=== PATIENT | female | born 1955 | race Caucasian/White ===

== ENCOUNTER 2019-04-10 19:08 | Inpatient (IN) ==
[2019-04-10] MEDS ORDERED: IOPAMIDOL 100 ML BOTTLE IV ONE (19:09)
[2019-04-10] MEDS ORDERED: ONDANSETRON 4 MG/2 ML VIAL IV ONE (19:49)
[2019-04-10] MEDS ORDERED: HYDROmorphone 2 MG/ML VIAL IV PRN (19:49)
[2019-04-10] MEDS ORDERED: 0.9 % SODIUM CHLORIDE 2,000 ML IV ONE (19:49)
--- NOTE | 2019-04-10 19:53 | Emergency Department Note ---
Abdominal Pain HPI - General Chief Complaint: Abdominal Pain Stated Complaint: abd pain Time Seen by Provider: 04/10/19 19:38 Source: patient Mode of arrival: ambulatory Limitations: no limitations - History of Present Illness HPI Narrative: 64-year-old female with a 4-day history of nausea vomiting and diarrhea. She does have a history of umbilical hernia that occasionally flares up causes pain in this kind of picture but it does not usually last 4 days. She is having some cramping belly pain and this has subsided somewhat but still remains. Unknown fever. No dyspnea - Related Data Previous Rx's Medication Instructions Recorded blood sugar diagnostic strips See Dose Instructions .ROUTE 02/06/15 .MEDSUPPLY #100 each Chair lift #1 each 09/10/16 CPAP auto titration W supplys #1 each 09/20/16 Disabled parking pass #1 ea 06/13/17 atorvastatin 40 mg tablet 40 mg PO QDAY #30 tab 02/08/18 metformin 850 mg tablet 850 mg PO BID #60 tab 03/07/18 pioglitazone 45 mg tablet 45 mg PO .COMPLEX #30 tab 03/07/18 [employer] for CPAP device #1 ea 03/29/18 losartan 100 mg tablet 100 mg PO QDAY #30 tab 06/08/18 Allergies Allergy/AdvReac Type Severity Reaction Status Date / Time No Known Drug Allergies Allergy Verified 06/28/18 10:07 Review of Systems All systems ED: reviewed and negative except as stated. Abdominal Pain PMH - Past Medical History Attestation: Yes: The following information was validated with the patient. [facility] Narrative: Family History (Last Reviewed 04/10/19 @ 18:51 by Sejal Hargrove PA-C) Father Coronary artery disease, Onset Age: 75 Mother Diabetes mellitus Malignant neoplasm of lung, Onset Age: 81 Unknown History of carcinoma in situ of skin Medical History (Last Reviewed 04/10/19 @ 18:51 by Sejal Hargrove PA-C) Diabetes mellitus (Chronic) Hx of fracture of foot (Chronic) Retinal edema (Chronic) Nuclear sclerosis (Chronic) Benign essential HTN (Chronic 08/04/12) Diabetes mellitus with ophthalmic manifestation (Chronic) DDD (degenerative disc disease), lumbosacral (Chronic) Abdominal pain (Resolved) 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 Normocephalic atraumatic. Conjunctive are clear sclerae white anicteric. No nasal discharge or congestion. Oropharynx pink with dry buccal mucosa. Neck is supple without lymphadenopathy thyromegaly. Heart is regular rate and rhythm. Early systolic murmur 2 out of 6. Lungs are clear to auscultation bilaterally without wheezes rales rhonchi or respiratory distress. Abdomen is soft nontender nondistended except for an umbilical hernia and scar area which is very mildly tender and just mildly erythematous as well. I do not see any other abnormality. No pedal edema. +2 radial pulse. Alert oriented Limitations: no limitations Course Vital Signs Temperature 97.9 F 04/10/19 19:09 Pulse Rate 106 H 04/10/19 19:09 Respiratory Rate 20 04/10/19 19:09 Blood Pressure 130/63 04/10/19 19:09 Pulse Oximetry (%) 99 04/10/19 19:09 Temperature 97.9 F 04/10/19 19:09 Pulse Rate 87 04/10/19 21:16 Respiratory Rate 20 04/10/19 21:40 Blood Pressure 164/77 04/10/19 21:31 Pulse Oximetry (%) 100 04/10/19 21:16 Abdominal Pain - Lab Data Lab results reviewed: Yes I reviewed the patient's lab results. Result diagrams: 04/10/19 19:57 04/10/19 19:56 Lab Results 04/10/19 04/10/19 04/10/19 Range/Units 19:56 19:57 21:20 WBC 11.7 H (4.5-11.0) K/mcL RBC 4.51 (4.00-5.20) M/mcL Hgb 13.8 (12.0-15.0) g/dL Hct 41.6 (36.0-48.0) % POC Hct 43.0 (36.0-48.0) % MCV 92.2 (80.0-100.0) fL MCH 30.6 (26.0-34.0) pg MCHC 33.2 (31.0-36.0) g/dL RDW 14.9 H (11.5-14.5) % Plt Count 362 (140-440) K/mcL MPV 7.5 (7.4-10.4) fL Gran % 82.9 H (38.0-78.0) % Lymph % (Auto) 7.9 L (15.5-49.0) % [place] % (Auto) 8.9 (1.0-12.0) % Eos % (Auto) 0.2 (0.0-7.0) % Baso % (Auto) 0.1 (0.0-2.0) % Gran # 9.7 H (1.8-8.0) K/mcL Lymph # (Auto) 0.9 L (1.5-4.8) K/mcL [place] # (Auto) 1.0 H (0.1-0.9) K/mcL Eos # (Auto) 0 (0.0-0.7) K/mcL Baso # (Auto) 0 (0.0-0.3) K/mcL POC Sodium 139 (133-145) mmol/L Sodium 139 (133-145) mmol/L POC Potassium 3.8 (3.3-5.1) mmol/L Potassium 3.9 (3.3-5.1) mmol/L POC Chloride 102 (96-108) mmol/L Chloride 100 (96-108) mmol/L Carbon Dioxide 25 (22-30) mmol/L POC Total CO2 27 (22-30) mmol/L Anion Gap 14.0 (8-16) POC BUN 28 H (8-23) mg/dl BUN 26 H (8-23) mg/dl Creatinine 0.9 (0.6-1.1) mg/dl POC Creatinine 0.9 (0.6-1.1) mg/dl GFR Calculation 67 Glucose 164 H (70-105) mg/dL POC Glucose 169 H (70-105) mg/dL Calcium 9.9 (8.6-10.4) mg/dl POC WB Ioniz Calcium 1.19 (1.16-1.32) mmol/L Total Bilirubin 0.7 (0.0-1.0) mg/dL AST 14 (0-37) U/l ALT 13 (0-40) U/l Alkaline Phosphatase 71 (39-117) U/L Total Protein 7.8 (5.9-8.4) gm/dL Albumin 4.4 (3.2-5.2) gm/dL Globulin 3.4 (2.2-3.7) gm/dL Albumin/Globulin Ratio 1.3 (1.0-2.3) Lipase 36 (7-60) U/L Urine Color Sejal Urine Appearance Turbid Urine pH 5.0 (5.0-9.0) Ur Specific [place] 1.026 (1.000-1.035) Urine Protein 30 A (NEG) mg/dL Urine Glucose (UA) Negative (NEG) mg/dL Urine Ketones 5/tr A (NEG) mg/dL Urine Occult Blood 0.03 A (<0.03) mg/dL Urine Nitrate Pos A (NEG) Urine Bilirubin Neg (NEG) mg/dL Urine Urobilinogen Neg (NEG) mg/dL Ur Leukocyte Esterase 75 A (NEG) /uL Urine RBC 0 (0-1) /hpf Urine WBC 9 H (0-4) /hpf Ur Squamous Epith Cells 18 H (0-4) /hpf Ur Transition Epith Cell 3 H (0-2) /hpf Urine Bacteria Many A (0) /hpf Urine Mucus Mod (0) /hpf Ur Culture Indicated? No - Radiology Data Radiology results reviewed: Yes I reviewed the patient's radiology results. 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 Ordered pain medicine nausea medicine and IV fluids. CT scan and laboratory work-up pending Urine dip shows trace leukocytes and blood along with positive nitrites and specific gravity 1.025 consistent with a UTI and dehydration. Suspect complicated UTI or even pyelonephritis start Rocephin Urinalysis microscopic however shows lots of squamous cells so this is likely contaminated specimen. CT scan showed mechanical small bowel obstruction from incarcerated hernia. Discussed with Dr. Juan Gould. He advised me to go ahead and do an NG tube treat pain and nausea start IV fluids. Keep n.p.o. He will plan on doing surgery tomorrow morning. Per his request I wrote transition orders Disposition: Xfer As Inpt ([facility]) Condition: Fair Referrals: Murali Cloud MD [Primary Care Provider] -
[2019-04-10] MEDS ORDERED: cefTRIAXone 1 GM VIAL IV ONE (19:55)
[2019-04-10 20:01] LABS: POC Blood Urea Nitrogen 28 mg/dl (8-23); POC CO2 27 mmol/L (22-30); POC Calcium, Ionized 1.19 mmol/L (1.16-1.32); POC Chloride 102 mmol/L (96-108); POC Creatinine 0.9 mg/dl (0.6-1.1); POC Glucose, Random 169 mg/dL (70-105); POC Potassium 3.8 mmol/L (3.3-5.1); POC Sodium 139 mmol/L (133-145)
[2019-04-10 20:55] LABS: Basophils # (Auto) 0 K/mcL (0.0-0.3); Basophils % (Auto) 0.1 % (0.0-2.0); Eosinophils # (Auto) 0 K/mcL (0.0-0.7); Eosinophils % (Auto) 0.2 % (0.0-7.0); Granulocytes % (Auto) 82.9 % (38.0-78.0); Hematocrit 41.6 % (36.0-48.0); Hemoglobin 13.8 g/dL (12.0-15.0); Lymphocytes # (Auto) 0.9 K/mcL (1.5-4.8); Lymphocytes % (Auto) 7.9 % (15.5-49.0); Mean Cell Volume 92.2 fL (80.0-100.0); Mean Corpuscular HGB Conc 33.2 g/dL (31.0-36.0); Mean Platelet Volume 7.5 fL (7.4-10.4); Monocytes % (Auto) 8.9 % (1.0-12.0); Platelet Count 362 K/mcL (140-440); RBC 4.51 M/mcL (4.00-5.20); Red Cell Distribution Width 14.9 % (11.5-14.5); WBC 11.7 K/mcL (4.5-11.0)
[2019-04-10 21:09] LABS: ALT/SGPT 13 U/l (0-40); AST/SGOT 14 U/l (0-37); Albumin 4.4 gm/dL (3.2-5.2); Albumin/Globulin Ratio 1.3 (1.0-2.3); Alkaline Phosphatase 71 U/L (39-117); Bilirubin,Total 0.7 mg/dL (0.0-1.0); Blood Urea Nitrogen 26 mg/dl (8-23); Calcium 9.9 mg/dl (8.6-10.4); Carbon Dioxide 25 mmol/L (22-30); Chloride 100 mmol/L (96-108); Globulin 3.4 gm/dL (2.2-3.7); Glomerular Filtration Rate 67; Glucose 164 mg/dL (70-105)
[2019-04-10] MEDS ORDERED: NALOXONE HCL 0.4 MG/ML VIAL IV PRN (21:42)
[2019-04-10] MEDS ORDERED: ONDANSETRON 4 MG/2 ML VIAL IV PRN (21:42)
[2019-04-10 21:44] LABS: Appearance,Urine TURBID; Bacteria,Urine MANY /hpf (0); Bilirubin,Urine NEG (NEG); Color,Urine AMBER; Culture Indicated,Urine NO; Glucose,Urine (UA) NEGATIVE (NEG); Ketones,Urine 5/TR mg/dL (NEG); Leukocyte Esterase,Urine 75 /uL (NEG); Mucus,Urine MOD /hpf (0); Nitrate,Urine POS (NEG); Protein,Urine 30 mg/dL (NEG); Specific Gravity,Urine 1.026 (1.000-1.035); Urine Blood 0.03 mg/dL (<0.03); Urine RBC 0 /hpf (0-1); Urine Squamous Epithelial Cell 18 /hpf (0-4); Urine Transitional Epi Cells 3 /hpf (0-2); Urine WBC 9 /hpf (0-4); Urobilinogen,Urine NEG (NEG)
[2019-04-10] MEDS: 0.9 % SODIUM CHLORIDE 1,000 ML IV SCH (23:59)
--- NOTE | 2019-04-11 05:56 | Cat Scan Report ---
CLINICAL INFORMATION: Nausea, vomiting and diarrhea COMPARISON: None. TECHNIQUE: Following enteric contrast, 80 cc of Isovue-370 were injected intravenously, and 60 seconds later, 0.625 mm helical slices were obtained from the mid heart through the subtrochanteric regions. Following reconstruction, 2.5 mm sagittal, coronal and axial reformatted images were processed and reviewed at bone, lung and soft tissue windows. Five minutes later, 0.625 mm helical slices were obtained from the mid heart through the kidneys and viewed at soft tissue windows.The exam was performed using radiation dose optimization techniques including, but not limited to, automated exposure control, adjustment of the mA and/or kV according to patient size and use of iterative reconstruction technique. FINDINGS: Lung bases show moderate reticulonodular infiltrate in the medial segment of the right middle lobe. Minor scarring seen in the lingula. No effusion. The visualized heart is mildly enlarged. Abdominal images show an 8 mm cyst in the lateral segment left hepatic lobe, but no significant hepatic abnormality. There appear to be vague small cholesterol stones layering dependently within the gallbladder. The intrahepatic and extrahepatic ducts are normal diameter - CBD 5 mm. A 7 mm simple cyst is seen in posterior cortex mid left kidney - no other renal abnormality. Both adrenal glands, spleen, pancreas and aorta, including aortic branches, are normal in size, configuration and attenuation without focal lesion. Pelvic images with hysterectomy /oophorectomy. The urinary bladder is unremarkable. There is a 6 cm hernia in the left infraumbilical region of the anterior abdominal wall containing a short (4 cm) segment of ileum with resultant high-grade small bowel obstruction. Ileal wall continues to enhance, thus no evidence of strangulation. The stomach and proximal small bowel are moderately dilated with marked decompression of the small bowel and colon distal to the hernia sac. Moderate fluid in the hernia sac suggests associated third spacing. A second 5 cm hernia in the right infraumbilical region of the anterior abdominal wall contains only fluid. There is also a 8 cm multilobulated periumbilical hernia more superiorly containing mesenteric fat with moderate edema. There is no free air The bone windows show no osseous abnormality. IMPRESSION: 1. 6 cm hernia in the left infraumbilical region which contains a segment of distal ileum. Although incarceration is suspected, the ileal wall enhances and, thus, there is no evidence of strangulation. Moderate fluid within the hernia sac is compatible third spacing. The hernia has resulted in high-grade ileal obstruction with moderate dilatation of the stomach and proximal small bowel and decompression of the distal small bowel and colon. No free air. 2. Second 6 cm hernia in the right infraumbilical region contains only mesenteric fluid. 3. Third 8.5 cm multilobulated hernia, more superiorly in the periumbilical region, contains only edematous mesenteric fat. 4. Small reticuloodular infiltrate in the right middle lobe 5. Possible vague cholesterol stones layering dependently in the gallbladder. Suggest limited gallbladder ultrasound Interpreted and Authenticated by: Scott Macias 04/11/19
--- NOTE | 2019-04-11 10:19 | General Surg History&Physical ---
History of Present Illness Patient information: Note initiated : 04/11/19 at 10:17 am Service Date, if different from initiated Date: [] Patient: Charmaine Servin a 64 y/o F admitted on 04/10/19 for abd pain. Chief Complaint: [] HPI: Ms. Servin is a 64 year old F admitted with small bowel obstruction. The patient has a long history of incisional hernia with recurrent subacute small bowel obstruction. On Tuesday she developed mid line abdominal pain followed by nausea and vomiting. This persisted throughout the weekend. She had worsening emesis on yesterday and the pain became more severe and across her upper abdominal area. She was seen in the emergency room or a CT shows 3 major fascial defects with bowel and each hernia sac with one infraumbilical defect with a loop of small bowel that is tightly incarcerated in the hernia sac. There is also fluid in the hernia sac. Patient is less symptomatic at this time but she still has a tender abdomen. She is counseled for exploratory laparotomy with incisional hernia repair and possible small bowel resection. Review of Systems - Constitutional weight gain - EENT Nose, mouth and throat: no dizziness, no hoarseness, no vertigo - Cardiovascular dyspnea on exertion, no irregular heart rhythm, no palpatations, no pedal edema - Respiratory no cough, no dyspnea on exertion, no wheezing, no chest congestion - Gastrointestinal abdominal pain, change in bowel habits, diarrhea, heartburn, nausea, vomiting - Genitourinary Genitourinary: no urinary hesitancy, no urinary incontinence - Musculoskeletal back pain, numbness, stiffness, tingling - Integumentary no non-healing lesions, no pruritus, no rash - Neurological abnormal gait, no confusion, no convulsions, no dizziness, no headache(s), no tremor(s), no vertigo - Psychiatric no anxiety, no depression - Endocrine no cold intolerance, no fatigue - Hematologic/Lymphatic no easy bleeding, no easy bruising, no lymphadenopathy - Allergic/Immunologic no tongue swelling, no throat swelling, no uticaria, no wheezing, no lip swelling Past History Past medical history: Diabetes mellitus with neuropathy, nephropathy and ocular deficiencies Hypertension Degenerative disc disease Past surgical history: Abdominal hysterectomy Left foot surgery for [id number] Past family history: Father due to coronary artery disease He also had diabetes mellitus Mother due to lung cancer Past social history: Never smoker Occasional alcohol use Denies drug use Medications and Allergies Home Medications Medication Instructions Recorded Confirmed Type blood sugar diagnostic strips See Dose Instructions .ROUTE 02/06/15 06/28/18 Rx .MEDSUPPLY #100 each Chair lift #1 each 09/10/16 06/28/18 Rx CPAP auto titration W supplys #1 each 09/20/16 06/28/18 Rx Disabled parking pass #1 ea 06/13/17 06/28/18 Rx atorvastatin 40 mg tablet 40 mg PO QDAY #30 tab 02/08/18 04/10/19 Rx metformin 850 mg tablet 850 mg PO BID #60 tab 03/07/18 04/10/19 Rx pioglitazone 45 mg tablet 45 mg PO .COMPLEX #30 tab 03/07/18 04/10/19 Rx [employer] for CPAP device #1 ea 03/29/18 06/28/18 Rx losartan 100 mg tablet 100 mg PO QDAY #30 tab 06/08/18 04/10/19 Rx Allergies Allergy/AdvReac Type Severity Reaction Status Date / Time No Known Drug Allergies Allergy Verified 06/28/18 10:07 Exam Temp Pulse Resp BP Pulse Ox 99.2 F H 106 H 18 110/51 96 04/11/19 08:00 04/11/19 08:00 04/11/19 08:00 04/11/19 08:00 04/11/19 08:00 - General physical appearance well developed, well nourished, no distress, no pain, obese (morbidly obese) - Eyes PERRL, normal ocular movement - ENT normal pinna, normal nares, normal mucosa, no hearing loss, no congestion - Head Head exam IM: Present: atraumatic, normal inspection, normocephalic - Neck no masses, no bruits, trachea midline, no lymphadenopathy, no venous distension - Cardiovascular Cardiovascular exam IM: Present: normal rate and rhythm, RRR, +S1, +S2. Absent: bradycardia, JVD, tachycardia Type of murmur IM: Present: systolic Intensity IM: 2/6 - Respiratory normal expansion, normal respiratory effort, clear to auscultation - Abdomen Abdomen: Present: soft, tender ( mild tenderness mid abdomen), bowel sounds ( hyperactive bowel sounds with borborygmi), surgical scars Hernia: Present: none - Genitourinary Present: normal external genitalia - Integumentary Present: no rash, no growths, no abnormal pigmentation - Neurologic Present: normal coordination, normal sensation - Musculoskeletal Present: normal gait, normal posture, other ( deformities of both feet) - Psychiatric Present: oriented to time, oriented to person, oriented to place, speech is normal, memory intact Assessment and Plan (1) Incisional hernia of anterior abdominal wall with obstruction Patient is counseled for exploratory laparotomy with incisional hernia repair She will probably need to have mesh graft for fixation of the hernia There is a possibility that she will need to have a small bowel resection Status: Acute (2) Dehydration Partially corrected with IV saline. Continued hydration will be carried out Status: Acute (3) Benign essential HTN Status: Chronic (4) Diabetes mellitus with ophthalmic manifestation will cover with every 6 hours Accu-Cheks and sliding scale insulin Status: Chronic
[2019-04-11] MEDS: 0.9 % SODIUM CHLORIDE 1,000 ML IV SCH ×4 (10:29→23:28)
[2019-04-11] MEDS ORDERED: IPRATROPIUM/ALBUTEROL 3 ML AMPUL.NEB NEB PRN ×2 (10:36→14:37)
[2019-04-11] MEDS ORDERED: SCOPOLAMINE 1 PATCH PATCH TOPICAL PRN (10:36)
--- NOTE | 2019-04-11 12:37 | XRay Report ---
CLINICAL INFORMATION: Preop COMPARISON: None. TECHNIQUE: PA and Lateral views FINDINGS: The heart size, mediastinum and pulmonary vessels are unremarkable. Small infiltrate in the right middle lobe appreciated. There are no effusions. The bones and soft tissues are within normal limits. IMPRESSION: Small right middle lobe infiltrate. Interpreted and Authenticated by: Scott Macias 04/11/19
[2019-04-11] MEDS ORDERED: MIDAZOLAM 2 MG/2 ML VIAL IV ONE (12:45)
[2019-04-11] MEDS ORDERED: SUGAMMADEX SODIUM 200 MG/2 ML VIAL IV ONE (12:45)
[2019-04-11] MEDS ORDERED: LIDOCAINE HCL/PF 100 MG/5 ML SYRINGE IV ONE (12:45)
[2019-04-11] MEDS ORDERED: GLYCOPYRROLATE 0.2 MG/ML VIAL IV ONE (12:45)
[2019-04-11] MEDS ORDERED: ROPIVACAINE HCL/PF 30 ML VIAL IJ ONE (12:45)
[2019-04-11] MEDS ORDERED: ONDANSETRON 4 MG/2 ML VIAL IV ONE (12:45)
[2019-04-11] MEDS ORDERED: PROPOFOL 200 MG/20 ML VIAL IV ONE (12:45)
[2019-04-11] MEDS ORDERED: KETAMINE 100 MG/ML ML IV ONE (12:45)
[2019-04-11] MEDS ORDERED: ROCURONIUM 10 MG/ML ML IV ONE (12:45)
[2019-04-11] MEDS ORDERED: BACITRACIN 50,000 UNIT VIAL IR ONE (14:20)
[2019-04-11] MEDS ORDERED: KETOROLAC 15 MG/ML VIAL IV PRN (14:37)
[2019-04-11] MEDS ORDERED: METHOCARBAMOL 1,000 MG/10 ML VIAL IV PRN (14:37)
[2019-04-11] MEDS ORDERED: MEPERIDINE 25 MG/ML SYRINGE IV PRN (14:37)
[2019-04-11] MEDS ORDERED: ACETAMINOPHEN 1,000 MG/100 ML BOTTLE IV ONE (14:37)
[2019-04-11] MEDS ORDERED: ONDANSETRON 4 MG/2 ML VIAL IV PRN ×2 (14:37→16:10)
[2019-04-11] MEDS ORDERED: HYDROmorphone 2 MG/ML VIAL IV PRN (14:37)
[2019-04-11] MEDS ORDERED: LACTATED RINGERS 1,000 ML IV SCH (14:45)
--- NOTE | 2019-04-11 15:01 | Brief Operative Note ---
Date of procedure: 04/11/19 Pre-op diagnosis: incisional hernia with small bowel obstruction Post-op diagnosis: other (multiple incisional hernias with small bowel obstruction) Procedure: exploratory laparotomy with adhesiolysis incisional hernia repair with mesh graft Grafts/Implants: Yes ([id number] -skirted) Anesthesia: GETA Findings: three major fascial defects with incarcerated small bowel with obstruction extensive adhesions with partial small bowel obstruction Complications: none Surgeon: Gudelia Gould Estimated blood loss (cc): 100 Specimens Removed/Pathology: none sent Condition: stable Disposition: PACU
[2019-04-11] MEDS: fentaNYL 100 MCG/2 ML VIAL IV PRN ×2 (15:36→15:42)
[2019-04-11] MEDS ORDERED: ACETAMINOPHEN 1,000 MG in PREMIX 1 BAG IV SCH (16:10)
[2019-04-11] MEDS ORDERED: 0.9 % SODIUM CHLORIDE 1,000 ML IV SCH (16:10)
[2019-04-11] MEDS ORDERED: ACETAMINOPHEN 1,000 MG/100 ML BOTTLE IV PRN (16:23)
[2019-04-11] MEDS ORDERED: ACETAMINOPHEN 1,000 MG/100 ML BOTTLE IV SCH (16:30)
[2019-04-11] MEDS: HYDROmorphone 2 MG/ML VIAL IV PRN (16:34)
[2019-04-11] MEDS: CEFEPIME 2 GM VIAL IV SCH (16:35)
[2019-04-11] MEDS: INSULIN LISPRO 1 UNIT/0.01 ML UNIT SQ SCH (16:40)
[2019-04-11] MEDS: metroNIDAZOLE 500 MG/100 ML BAG IV SCH ×2 (17:15→23:27)
[2019-04-11] MEDS: METOCLOPRAMIDE 10 MG/2 ML VIAL IV SCH ×2 (18:14→23:27)
[2019-04-11] MEDS: ACETAMINOPHEN 1,000 MG/100 ML BOTTLE IV SCH (21:14)
[2019-04-12] MEDS: INSULIN LISPRO 1 UNIT/0.01 ML UNIT SQ SCH ×5 (00:02→23:55)
[2019-04-12] MEDS: ACETAMINOPHEN 1,000 MG/100 ML BOTTLE IV SCH ×2 (03:37→09:29)
[2019-04-12] MEDS: 0.9 % SODIUM CHLORIDE 1,000 ML IV SCH ×3 (03:38→18:07)
[2019-04-12] MEDS: metroNIDAZOLE 500 MG/100 ML BAG IV SCH ×2 (05:04→12:10)
[2019-04-12] MEDS: METOCLOPRAMIDE 10 MG/2 ML VIAL IV SCH ×4 (05:04→23:56)
[2019-04-12 07:15] LABS: Basophils # (Auto) 0 K/mcL (0.0-0.3); Basophils % (Auto) 0 % (0.0-2.0); Eosinophils # (Auto) 0.1 K/mcL (0.0-0.7); Eosinophils % (Auto) 0.6 % (0.0-7.0); Granulocytes % (Auto) 74.9 % (38.0-78.0); Hematocrit 36.7 % (36.0-48.0); Lymphocytes # (Auto) 1.4 K/mcL (1.5-4.8); Lymphocytes % (Auto) 11.5 % (15.5-49.0); Mean Cell Volume 93.8 fL (80.0-100.0); Mean Corpuscular HGB Conc 32.8 g/dL (31.0-36.0); Monocytes # (Auto) 1.6 K/mcL (0.1-0.9); Platelet Count 293 K/mcL (140-440); RBC 3.92 M/mcL (4.00-5.20); Red Cell Distribution Width 14.7 % (11.5-14.5); WBC 12.6 K/mcL (4.5-11.0)
[2019-04-12 07:37] LABS: ALT/SGPT 10 U/l (0-40); AST/SGOT 15 U/l (0-37); Alkaline Phosphatase 71 U/L (39-117); Bilirubin,Direct < 0.2 mg/dL (0.0-0.3); Bilirubin,Total 0.5 mg/dL (0.0-1.0); Blood Urea Nitrogen 15 mg/dl (8-23); Calcium 8.3 mg/dl (8.6-10.4); Carbon Dioxide 19 mmol/L (22-30); Chloride 106 mmol/L (96-108); Glomerular Filtration Rate 77; Glucose 93 mg/dL (70-105); Lactate Dehydrogenase 264 U/L (94-250); Phosphorous 3.6 mg/dL (2.7-4.5); Triglycerides 90 mg/dl (<150); Uric Acid 4.7 mg/dL (2.5-8.0)
[2019-04-12] MEDS: CEFEPIME 2 GM VIAL IV SCH ×2 (08:34→21:39)
[2019-04-12 13:15] LABS: Appearance,Urine CLEAR; Bacteria,Urine 0 /hpf (0); Bilirubin,Urine NEG (NEG); Color,Urine YELLOW; Glucose,Urine (UA) NEGATIVE (NEG); Ketones,Urine 5/TR mg/dL (NEG); Leukocyte Esterase,Urine NEG /uL (NEG); Mucus,Urine FEW /hpf (0); Nitrate,Urine NEG (NEG); Protein,Urine 30 mg/dL (NEG); Specific Gravity,Urine 1.028 (1.000-1.035); Urine Blood NEG mg/dL (<0.03); Urine RBC 0 /hpf (0-1); Urine Squamous Epithelial Cell 0 /hpf (0-4); Urine WBC 1 /hpf (0-4); Urobilinogen,Urine NEG (NEG)
--- NOTE | 2019-04-12 13:53 | General Surgery Progress Note ---
Subjective Patient reports: feels better, pain is less, flatus, no bowel movement, afebrile Narrative: Note initiated : 04/12/19 at 1:51 pm Service Date, if different from initiated Date: [] Patient: Charmaine Servin 64 y/o F admitted on 04/10/19 for abd pain. Chief Complaint: [Patient states that she feels better except for discomfort from her nasogastric tube. She states that she's passed flatus about 8 times. She has not had bowel movement yet. Her pain is controlled on present medication. I discussed the operative findings and the operative procedure with her.] Objective Temp Pulse Resp BP Pulse Ox 98.4 F 81 16 137/68 94 04/12/19 12:00 04/12/19 12:00 04/12/19 12:00 04/12/19 12:00 04/12/19 12:00 - Additional Data Intake & Output - Last 24 hours: Intake & Output 04/10/19 04/11/19 04/12/19 04/13/19 05:59 05:59 05:59 05:59 Intake Total 2000 4452 1100 Output Total 350 1505 480 Balance 1650 2947 620 Weight 264 lb 12.8 oz 269 lb 269 lb - General physical appearance well developed, well nourished, moderate distress, moderate pain - Eyes PERRL, normal ocular movement - ENT normal pinna, normal nares, normal mucosa, no hearing loss, no congestion - Neck no masses, no bruits, trachea midline, no lymphadenopathy, no venous distension - Respiratory normal expansion, normal respiratory effort, clear to auscultation - Cardiovascular Cardiovascular exam: Present: normal rate and rhythm, RRR, +S1, +S2. Absent: bradycardia, JVD, tachycardia - Abdomen tender (moderate incisional tenderness), bowel sounds (present), surgical scars (none), masses (none), distended (moderately distended) - Integumentary no rash, no growths, no abnormal pigmentation - Neurologic normal coordination, normal sensation - Musculoskeletal normal gait, normal posture - Psychiatric oriented to time, oriented to person, oriented to place, speech is normal, memory intact - Labs 04/12/19 04:45 04/12/19 04:45 Diabetes panel 04/12/19 Range/Units 04:45 Sodium 139 (133-145) mmol/L Potassium 4.0 (3.3-5.1) mmol/L Chloride 106 (96-108) mmol/L Carbon Dioxide 19 L (22-30) mmol/L BUN 15 (8-23) mg/dl Creatinine 0.8 (0.6-1.1) mg/dl Glucose 93 (70-105) mg/dL Calcium 8.3 L (8.6-10.4) mg/dl AST 15 (0-37) U/l ALT 10 (0-40) U/l Alkaline Phosphatase 71 (39-117) U/L Total Protein 6.0 (5.9-8.4) gm/dL Albumin 3.0 L (3.2-5.2) gm/dL Triglycerides 90 (<150) mg/dl Calcium panel 04/12/19 Range/Units 04:45 Calcium 8.3 L (8.6-10.4) mg/dl Phosphorus 3.6 (2.7-4.5) mg/dL Albumin 3.0 L (3.2-5.2) gm/dL Pituitary panel 04/12/19 Range/Units 04:45 Sodium 139 (133-145) mmol/L Potassium 4.0 (3.3-5.1) mmol/L Chloride 106 (96-108) mmol/L Carbon Dioxide 19 L (22-30) mmol/L BUN 15 (8-23) mg/dl Creatinine 0.8 (0.6-1.1) mg/dl Glucose 93 (70-105) mg/dL Calcium 8.3 L (8.6-10.4) mg/dl Adrenal panel 04/12/19 Range/Units 04:45 Sodium 139 (133-145) mmol/L Potassium 4.0 (3.3-5.1) mmol/L Chloride 106 (96-108) mmol/L Carbon Dioxide 19 L (22-30) mmol/L BUN 15 (8-23) mg/dl Creatinine 0.8 (0.6-1.1) mg/dl Glucose 93 (70-105) mg/dL Calcium 8.3 L (8.6-10.4) mg/dl Total Bilirubin 0.5 (0.0-1.0) mg/dL AST 15 (0-37) U/l ALT 10 (0-40) U/l Alkaline Phosphatase 71 (39-117) U/L Total Protein 6.0 (5.9-8.4) gm/dL Albumin 3.0 L (3.2-5.2) gm/dL Assessment and Plan (1) Incisional hernia of anterior abdominal wall with obstruction Status: Acute Assessment and plan: Clinically stable status post repair Early return of intestinal function Current Visit: Yes (2) Dehydration Status: Resolved Current Visit: Yes (3) Benign essential HTN Status: Chronic Current Visit: No (4) Diabetes mellitus with ophthalmic manifestation Status: Chronic Current Visit: No - Time Spent With Patient Total time spent is greater than 50% in coordination of care (as documented) at patient's floor/unit and/or counseling patient:
[2019-04-12] MEDS: HYDROmorphone 2 MG/ML VIAL IV PRN (18:20)
[2019-04-12] MEDS: BENZOCAINE 1 SPRAY BOTTLE TOPICAL PRN ×2 (18:22→21:52)
[2019-04-13] MEDS: 0.9 % SODIUM CHLORIDE 1,000 ML IV SCH ×4 (00:35→15:54)
[2019-04-13] MEDS: INSULIN LISPRO 1 UNIT/0.01 ML UNIT SQ SCH ×4 (06:24→23:43)
[2019-04-13] MEDS: METOCLOPRAMIDE 10 MG/2 ML VIAL IV SCH ×4 (06:24→23:43)
[2019-04-13 06:56] LABS: Basophils # (Auto) 0 K/mcL (0.0-0.3); Basophils % (Auto) 0.2 % (0.0-2.0); Eosinophils # (Auto) 0.1 K/mcL (0.0-0.7); Eosinophils % (Auto) 1.1 % (0.0-7.0); Granulocytes % (Auto) 77.1 % (38.0-78.0); Hematocrit 35.4 % (36.0-48.0); Hemoglobin 11.6 g/dL (12.0-15.0); Lymphocytes # (Auto) 1.6 K/mcL (1.5-4.8); Lymphocytes % (Auto) 12.5 % (15.5-49.0); Mean Cell Volume 93.7 fL (80.0-100.0); Mean Corpuscular HGB Conc 32.8 g/dL (31.0-36.0); Monocytes # (Auto) 1.2 K/mcL (0.1-0.9); Monocytes % (Auto) 9.1 % (1.0-12.0); Platelet Count 150 K/mcL (140-440); RBC 3.78 M/mcL (4.00-5.20); Red Cell Distribution Width 14.9 % (11.5-14.5); WBC 13.1 K/mcL (4.5-11.0)
[2019-04-13] MEDS: BENZOCAINE 1 SPRAY BOTTLE TOPICAL PRN ×2 (09:02→12:56)
[2019-04-13] MEDS: CEFEPIME 2 GM VIAL IV SCH ×2 (09:07→21:07)
--- NOTE | 2019-04-13 12:38 | General Surgery Progress Note ---
Subjective Patient reports: feels better, pain is less, flatus, bowel movement, afebrile Narrative: Note initiated : 04/13/19 at 12:36 pm Service Date, if different from initiated Date: [] Patient: Charmaine Servin 64 y/o F admitted on 04/10/19 for abd pain. Chief Complaint: [patient continues to improve. Her pain is controlled with present medication. She has had multiple bowel movements and passes large volume flatus. Her incision looks good. Her drain has a large volume of serous drainage but this is from return of third space fluid. White blood count 13.1, hemoglobin 11.6.] Objective Temp Pulse Resp BP Pulse Ox 98 F 98 H 20 140/70 95 04/13/19 11:51 04/13/19 08:00 04/13/19 11:51 04/13/19 11:51 04/13/19 11:51 - Additional Data Intake & Output - Last 24 hours: Intake & Output 04/11/19 04/12/19 04/13/19 04/14/19 05:59 05:59 05:59 05:59 Intake Total 2000 4452 3345 1000 Output Total 350 1505 1915 100 Balance 1650 2947 1430 900 Weight 264 lb 12.8 oz 269 lb 266 lb - General physical appearance well developed, well nourished, no distress, moderate pain - Eyes PERRL, normal ocular movement - ENT normal pinna, normal nares, normal mucosa, no hearing loss, no congestion - Neck no masses, no bruits, trachea midline, no lymphadenopathy, no venous distension - Respiratory normal expansion, normal respiratory effort, clear to auscultation - Cardiovascular Cardiovascular exam: Present: normal rate and rhythm, RRR, +S1, +S2. Absent: bradycardia, JVD, tachycardia - Abdomen tender (mild incisional tenderness), bowel sounds ( good active bowel sounds), surgical scars ( incision looks unremarkable; ROBI drainage was serous fluid), masses (none) - Integumentary no rash, no growths, no abnormal pigmentation - Neurologic normal coordination, normal sensation - Musculoskeletal normal gait, normal posture - Psychiatric oriented to time, oriented to person, oriented to place, speech is normal, m dayton intact - Labs 04/13/19 04:45 04/13/19 06:30 Diabetes panel 04/13/19 04/13/19 Range/Units 04:45 06:30 Sodium Not Reportable TNP Potassium Not Reportable TNP Chloride Not Reportable TNP Carbon Dioxide Not Reportable TNP BUN Not Reportable TNP Creatinine Not Reportable TNP Glucose TNP TNP Calcium Not Reportable TNP AST Not Reportable TNP ALT Not Reportable TNP Alkaline Phosphatase Not Reportable TNP Total Protein Not Reportable TNP Albumin Not Reportable TNP Triglycerides Not Reportable TNP Calcium panel 04/13/19 04/13/19 Range/Units 04:45 06:30 Calcium Not Reportable TNP Phosphorus Not Reportable TNP Albumin Not Reportable TNP Pituitary panel 04/13/19 04/13/19 Range/Units 04:45 06:30 Sodium Not Reportable TNP Potassium Not Reportable TNP Chloride Not Reportable TNP Carbon Dioxide Not Reportable TNP BUN Not Reportable TNP Creatinine Not Reportable TNP Glucose TNP TNP Calcium Not Reportable TNP Adrenal panel 04/13/19 04/13/19 Range/Units 04:45 06:30 Sodium Not Reportable TNP Potassium Not Reportable TNP Chloride Not Reportable TNP Carbon Dioxide Not Reportable TNP BUN Not Reportable TNP Creatinine Not Reportable TNP Glucose TNP TNP Calcium Not Reportable TNP Total Bilirubin Not Reportable TNP AST Not Reportable TNP ALT Not Reportable TNP Alkaline Phosphatase Not Reportable TNP Total Protein Not Reportable TNP Albumin Not Reportable TNP Assessment and Plan (1) Incisional hernia of anterior abdominal wall with obstruction Status: Acute Assessment and plan: Clear liquid diet Discontinue nasogastric tube Continue Fisher catheter Current Visit: Yes (2) Dehydration Status: Resolved Current Visit: Yes (3) Benign essential HTN Status: Chronic Current Visit: No (4) Diabetes mellitus with ophthalmic manifestation Status: Chronic Current Visit: No - Time Spent With Patient Total time spent is greater than 50% in coordination of care (as documented) at patient's floor/unit and/or counseling patient:
[2019-04-13] MEDS ORDERED: SODIUM PHOSPHATE 30 MMOL in DEXTROSE 5% IN WATER 500 ML IV ONE (12:59)
[2019-04-13 15:13] LABS: ALT/SGPT 10 U/l (0-40); AST/SGOT 15 U/l (0-37); Albumin 2.8 gm/dL (3.2-5.2); Alkaline Phosphatase 70 U/L (39-117); Bilirubin,Direct < 0.2 mg/dL (0.0-0.3); Bilirubin,Total 0.4 mg/dL (0.0-1.0); Blood Urea Nitrogen 9 mg/dl (8-23); Calcium 8.4 mg/dl (8.6-10.4); Carbon Dioxide 20 mmol/L (22-30); Chloride 107 mmol/L (96-108); Globulin 2.9 gm/dL (2.2-3.7); Glomerular Filtration Rate 90; Glucose 60 mg/dL (70-105); Lactate Dehydrogenase 248 U/L (94-250); Phosphorous 2.8 mg/dL (2.7-4.5); Triglycerides 70 mg/dl (<150); Uric Acid 5.1 mg/dL (2.5-8.0)
[2019-04-14] MEDS: 0.9 % SODIUM CHLORIDE 1,000 ML IV SCH ×3 (00:47→18:07)
[2019-04-14] MEDS: METOCLOPRAMIDE 10 MG/2 ML VIAL IV SCH ×3 (06:04→18:04)
[2019-04-14] MEDS: INSULIN LISPRO 1 UNIT/0.01 ML UNIT SQ SCH ×4 (06:06→20:45)
[2019-04-14 07:03] LABS: Basophils # (Auto) 0 K/mcL (0.0-0.3); Basophils % (Auto) 0.2 % (0.0-2.0); Eosinophils # (Auto) 0.3 K/mcL (0.0-0.7); Eosinophils % (Auto) 2.6 % (0.0-7.0); Granulocytes % (Auto) 71.9 % (38.0-78.0); Hematocrit 31.4 % (36.0-48.0); Hemoglobin 10.3 g/dL (12.0-15.0); Lymphocytes # (Auto) 1.5 K/mcL (1.5-4.8); Lymphocytes % (Auto) 14.3 % (15.5-49.0); Mean Cell Volume 93.3 fL (80.0-100.0); Mean Corpuscular HGB Conc 32.9 g/dL (31.0-36.0); Monocytes # (Auto) 1.1 K/mcL (0.1-0.9); Platelet Count 310 K/mcL (140-440); RBC 3.37 M/mcL (4.00-5.20); Red Cell Distribution Width 14.5 % (11.5-14.5); WBC 10.4 K/mcL (4.5-11.0)
[2019-04-14 07:08] LABS: ALT/SGPT 8 U/l (0-40); AST/SGOT 10 U/l (0-37); Albumin 2.7 gm/dL (3.2-5.2); Alkaline Phosphatase 65 U/L (39-117); Bilirubin,Direct < 0.2 mg/dL (0.0-0.3); Bilirubin,Total 0.3 mg/dL (0.0-1.0); Blood Urea Nitrogen 7 mg/dl (8-23); Calcium 8.3 mg/dl (8.6-10.4); Carbon Dioxide 24 mmol/L (22-30); Chloride 109 mmol/L (96-108); Globulin 2.6 gm/dL (2.2-3.7); Glomerular Filtration Rate 90; Glucose 96 mg/dL (70-105); Lactate Dehydrogenase 202 U/L (94-250); Phosphorous 2.5 mg/dL (2.7-4.5); Triglycerides 85 mg/dl (<150); Uric Acid 4.9 mg/dL (2.5-8.0)
[2019-04-14] MEDS: CEFEPIME 2 GM VIAL IV SCH ×2 (08:51→20:45)
[2019-04-14] MEDS ORDERED: POTASSIUM PHOSPHATE 40 MEQ in DEXTROSE 5% IN WATER 500 ML IV ONE (10:37)
[2019-04-14] MEDS ORDERED: MAGNESIUM SULFATE 4 GM/100 ML BAG IV ONE (10:39)
--- NOTE | 2019-04-14 10:43 | Discharge Summary ---
Providers - Providers Patient information: Note initiated : 04/14/19 at 10:37 am Service Date, if different from initiated Date: [] Patient: Charmaine Servin 64 y/o F admitted on 04/10/19 for abd pain. Chief Complaint: [] Date of admission: 04/05/19 Discharge date: 04/14/19 Attending physician: Aaron brown ,GENERAL SURGERY Hospitalization Hospital Course: 79-year-old female with history of left lower quadrant pain and suprapubic pain for many months. She also had progressive worsening constipation. She use chronic laxatives without improvement. She developed increasing abdominal distention with nausea and vomiting. She also became progressively weak. She has at least a 20 pound weight loss over the past few months. She was seen in the emergency room and evaluated where a CT scan showed inflammation of the sigmoid colon with a 9 cm and a 5 cm thick-walled abscesses in the pelvis. White blood count initially was 18,900. She had evidence of early sepsis. Patient was admitted and started on antibiotics. She was counseled for exploratory laparotomy on 06 April. At laparotomy she was found to have diverticulitis with perforation and the left pelvic abscess involving the left tube and ovary. She also had a major uterine abscess with massive amount of pus in the uterus. She underwent a segmental left colectomy with colostomy and Augustine's pouch, total abdominal hysterectomy with bilateral salpingo- oophorectomy, drainage of pelvic abscess. She also received 4 units of packed red cells perioperatively for hemoglobin at 7.3. Because of severe inflammation of the pelvis due to extensive blunt dissection she lost at least 500 cc of blood and required transfusion. Her hemoglobin however has remained stable. Cultures of the abscess grew out Streptococcus intermedius, Klebsiella pneumonia, Lactobacillus acidophilus. The patient has progressed daily. She started having stomal function on 12 April and her diet was advanced without difficulty. She is now tolerating a soft diet. She has a early stage II sacral decubitus which is been treated with a Mepilex border dressing. She has become progressively stronger.her white blood count is normal at 10.4. She has been afebrile. Patient is clinically stable except for severe weakness. She will need to be transferred to care home facility for continued occupational and physical therapy wound care to her sacral decubitus and treatment and help with her stoma. Long-term outlook is good. Discharge diagnosis: diverticulitis with perforation and abscess Secondary discharge diagnosis: Left tubo-ovarian abscess and uterine abscess Severe anemia Sepsis syndrome Sacral decubitus stage II Reason for admission: abdominal pain, colonic obstruction, pelvic abscess Procedures: Segmental left colectomy with colostomy and Augustine's pouch Total abdominal hysterectomy with bilateral salpingo-oophorectomy Drainage of pelvic abscess Pertinent studies/significant findings: CT of abdomen and pelvis with IV contrast Complications: None Exam Temp Pulse Resp BP Pulse Ox 97.8 F 84 20 139/68 93 04/14/19 07:36 04/14/19 04:00 04/14/19 07:36 04/14/19 07:36 04/14/19 07:36 - General physical appearance no distress, moderate pain, cachectic, chronically ill - Eyes PERRL, normal ocular movement - ENT normal pinna, normal nares, normal mucosa, no hearing loss, no congestion - Head Head exam IM: Present: atraumatic, normocephalic - Neck no masses, no bruits, trachea midline, no lymphadenopathy, no venous distension - Cardiovascular Cardiovascular exam IM: Present: normal rate and rhythm - Respiratory normal expansion, normal respiratory effort, clear to auscultation - Abdomen Abdomen: Present: soft, tender (tender midline incision; functioning stoma left lower quadrant; ROBI drain right lower quadrant with serous drainage), bowel sounds Hernia: Present: none - Genitourinary Present: normal external genitalia - Integumentary Present: no rash, no growths, no abnormal pigmentation - Neurologic Present: normal coordination, normal sensation - Musculoskeletal Present: normal gait, normal posture - Psychiatric Present: oriented to time, oriented to person, oriented to place, speech is normal, memory intact Discharge Plan - Patient/Caregiver Discharge Instructions Activity: as per physical therapy, increase activity as tolerated Diet: Regular Diet Additional Instructions: Patient needs continued teaching concerning ostomy care and changing of her ostomy appliance Empty ROBI drains once or twice daily as needed Follow-up in the office with me in 1 week for drain and staple removal May change abdominal dressings as needed Will need close monitoring of sacral decubitus with dressing changes as needed and frequent turning and repositioning Prescriptions: RX: Cephalexin [Keflex] 500 mg PO QID #40 cap Prescription Printed - Follow up Plan Follow up with: Murali Cloud MD [Primary Care Provider] - Prognosis: Fair Pending Studies Resuscitation Status Full Code Diet Clear Liquid Diet Start TueApr 13 1901 Benzocaine (Cetacaine) 2 spray TOPICAL Q2HP PRN PRN Reason: SORE THROAT Last Admin: 04/13/19 12:56 Dose: 2 spray Documented by: Admin: 04/13/19 09:02 Dose: 2 spray Documented by: Admin: 04/12/19 21:52 Dose: 2 spray Documented by: Admin: 04/12/19 18:22 Dose: 2 spray Documented by: QUE Cefepime HCl (Maxipime) 2 gm IV Q12H DENICE; Protocol Last Admin: 04/14/19 08:51 Dose: 2 gm Documented by: [email or web address] Admin: 04/13/19 21:07 Dose: 2 gm Documented by: Admin: 04/13/19 09:07 Dose: 2 gm Documented by: Admin: 04/12/19 21:39 Dose: 2 gm Documented by: Admin: 04/12/19 08:34 Dose: 2 gm Documented by: Admin: 04/11/19 16:35 Dose: 2 gm Documented by: [id number] Diagnostic Test (Pha) (Accu-Chek) 1 each FS Q6 DENICE; Protocol Last Admin: 04/14/19 06:05 Dose: 1 each Documented by: Admin: 04/13/19 23:42 Dose: 1 each Documented by: Admin: 04/13/19 18:12 Dose: 1 each Documented by: Admin: 04/13/19 12:27 Dose: 1 each Documented by: Admin: 04/13/19 06:24 Dose: 1 each Documented by: Admin: 04/12/19 23:54 Dose: 1 each Documented by: Admin: 04/12/19 18:05 Dose: 1 each Documented by: Admin: 04/12/19 12:09 Dose: 1 each Documented by: Admin: 04/12/19 05:07 Dose: 1 each Documented by: Admin: 04/12/19 00:02 Dose: 1 each Documented by: Admin: 04/11/19 16:35 Dose: 1 each Documented by: [id number] Hydromorphone HCl (Dilaudid) 1 mg IV Q2HP PRN PRN Reason: PAIN LEVEL > 6 Last Admin: 04/12/19 18:20 Dose: 1 mg Documented by: [email or web address] Admin: 04/11/19 16:34 Dose: 1 mg Documented by: [id number] Sodium Chloride (Sodium Chloride 0.9%) 1,000 mls @ 150 mls/hr IV .Q6H40M DENICE Last Admin: 04/14/19 08:50 Dose: 150 mls/hr Documented by: [email or web address] Infusion: 04/14/19 07:28 Dose: 150 mls/hr Documented by: Admin: 04/14/19 00:47 Dose: 150 mls/hr Documented by: Infusion: 04/13/19 22:35 Dose: 150 mls/hr Documented by: Admin: 04/13/19 15:54 Dose: 150 mls/hr Documented by: Infusion: 04/13/19 15:54 Dose: 0 mls/hr Documented by: Admin: 04/13/19 08:42 Dose: 150 mls/hr Documented by: Infusion: 04/13/19 08:41 Dose: 0 mls/hr Documented by: Admin: 04/13/19 00:52 Dose: 150 mls/hr Documented by: Infusion: 04/13/19 00:48 Dose: 150 mls/hr Documented by: Admin: 04/13/19 00:35 Dose: Not Given Documented by: Admin: 04/13/19 00:35 Dose: Not Given Documented by: Admin: 04/12/19 18:07 Dose: 150 mls/hr Documented by: Infusion: 04/12/19 18:06 Dose: 0 mls/hr Documented by: Admin: 04/12/19 09:28 Dose: 150 mls/hr Documented by: Infusion: 04/12/19 09:28 Dose: 0 mls/hr Documented by: Admin: 04/12/19 03:38 Dose: Not Given Documented by: Admin: 04/11/19 23:28 Dose: 150 mls/hr Documented by: Infusion: 04/11/19 22:55 Dose: 150 mls/hr Documented by: Admin: 04/11/19 21:16 Dose: Not Given Documented by: Admin: 04/11/19 16:14 Dose: 150 mls/hr Documented by: [id number] Insulin Human Lispro (Humalog) 0 unit SQ Q6 DENICE; Protocol Last Admin: 04/14/19 06:06 Dose: Not Given Documented by: Admin: 04/13/19 23:43 Dose: Not Given Documented by: Admin: 04/13/19 18:12 Dose: Not Given Documented by: Admin: 04/13/19 12:27 Dose: Not Given Documented by: Admin: 04/13/19 06:24 Dose: Not Given Documented by: Admin: 04/12/19 23:55 Dose: Not Given Documented by: Admin: 04/12/19 18:06 Dose: Not Given Documented by: Admin: 04/12/19 12:09 Dose: Not Given Documented by: Admin: 04/12/19 05:06 Dose: Not Given Documented by: Admin: 04/12/19 00:02 Dose: Not Given Documented by: Admin: 04/11/19 16:40 Dose: Not Given Documented by: [id number] Metoclopramide HCl (Reglan) 10 mg IV Q6 DENICE Last Admin: 04/14/19 06:04 Dose: 10 mg Documented by: Admin: 04/13/19 23:43 Dose: 10 mg Documented by: Admin: 04/13/19 18:13 Dose: 10 mg Documented by: [facility] Admin: 04/13/19 12:25 Dose: 10 mg Documented by: Admin: 04/13/19 06:24 Dose: 10 mg Documented by: Admin: 04/12/19 23:56 Dose: 10 mg Documented by: Admin: 04/12/19 18:06 Dose: 10 mg Documented by: [email or web address] Admin: 04/12/19 12:10 Dose: 10 mg Documented by: Admin: 04/12/19 05:04 Dose: 10 mg Documented by: Admin: 04/11/19 23:27 Dose: 10 mg Documented by: Admin: 04/11/19 18:14 Dose: 10 mg Documented by: [id number] Shift Summary 04/14/19 04:30 Shift Summary by Stefania Melgoza Patient alert and oriented. Did not require pain medication this shift. Denies any nausea. Tolerating clear liquid diet. BSL at midnight 101. IVF NS@150 infusing well on right hand. Midline incision- kendra and tegaderm dressing CDI. RLQ ROBI drained 70 mls of serosanguinous output. Active bowel tones, passing flatus but no BM yet. Unable to use abdominal binder yesterday, too loose. None available that would fit patient. Fisher catheter emptied 525 mls. Patient up on chair yesterday. Transfers from bed to chair with standby assist. Orthotic shoes on when out of bed. On IV ABO Maxipime. VSS. Initialized on 04/14/19 04:30 - END OF NOTE
--- NOTE | 2019-04-14 11:58 | General Surgery Progress Note ---
Subjective Patient reports: feels better, pain is less, tolerating liquids well, flatus, no bowel movement, afebrile Narrative: Note initiated : 04/14/19 at 11:56 am Service Date, if different from initiated Date: [] Patient: Charmaine Servin 64 y/o F admitted on 04/10/19 for abd pain. Chief Complaint: [patient remains stable. She is afebrile. Her pain is well controlled. She has had flatus but no bowel movement. She denies nausea. White blood count 10.4, hemoglobin 10.3, phosphorus 2.5.] Objective Temp Pulse Resp BP Pulse Ox 97.8 F 84 20 139/68 93 04/14/19 07:36 04/14/19 04:00 04/14/19 07:36 04/14/19 07:36 04/14/19 07:36 - Additional Data Intake & Output - Last 24 hours: Intake & Output 04/12/19 04/13/19 04/14/19 04/15/19 05:59 05:59 05:59 05:59 Intake Total 4452 3345 3520 1000 Output Total 1505 1915 1510 Balance 2947 1430 2009 1000 Weight 269 lb 266 lb 273 lb 3.2 oz - General physical appearance well developed, well nourished, no distress - Eyes PERRL, normal ocular movement - ENT normal pinna, normal nares, normal mucosa, no hearing loss, no congestion - Neck no masses, no bruits, trachea midline, no lymphadenopathy, no venous distension - Respiratory normal expansion, normal respiratory effort, clear to auscultation - Cardiovascular Cardiovascular exam: Present: normal rate and rhythm, RRR, +S1, +S2. Absent: bradycardia, tachycardia - Abdomen soft, tender (moderate incisional tenderness; good active bowel sounds; ROBI drain with large volume of serous drainage) - Integumentary no rash, no growths, no abnormal pigmentation - Neurologic normal coordination, normal sensation - Musculoskeletal other ( ambulation is altered by her Charcot ankles and deformed feet) - Psychiatric oriented to time, oriented to person, oriented to place, speech is normal, memory intact - Labs 04/14/19 05:46 04/14/19 05:46 Diabetes panel 04/13/19 04/14/19 Range/Units 06:30 05:46 Sodium 141 142 (133-145) mmol/L Potassium 3.5 3.3 (3.3-5.1) mmol/L Chloride 107 109 H (96-108) mmol/L Carbon Dioxide 20 L 24 (22-30) mmol/L BUN 9 7 L (8-23) mg/dl Creatinine 0.7 0.7 (0.6-1.1) mg/dl Glucose 60 L 96 (70-105) mg/dL Calcium 8.4 L 8.3 L (8.6-10.4) mg/dl AST 15 10 (0-37) U/l ALT 10 8 (0-40) U/l Alkaline Phosphatase 70 65 (39-117) U/L Total Protein 5.7 L 5.3 L (5.9-8.4) gm/dL Albumin 2.8 L 2.7 L (3.2-5.2) gm/dL Triglycerides 70 85 (<150) mg/dl Calcium panel 04/13/19 04/14/19 Range/Units 06:30 05:46 Calcium 8.4 L 8.3 L (8.6-10.4) mg/dl Phosphorus 2.8 2.5 L (2.7-4.5) mg/dL Albumin 2.8 L 2.7 L (3.2-5.2) gm/dL Pituitary panel 04/13/19 04/14/19 Range/Units 06:30 05:46 Sodium 141 142 (133-145) mmol/L Potassium 3.5 3.3 (3.3-5.1) mmol/L Chloride 107 109 H (96-108) mmol/L Carbon Dioxide 20 L 24 (22-30) mmol/L BUN 9 7 L (8-23) mg/dl Creatinine 0.7 0.7 (0.6-1.1) mg/dl Glucose 60 L 96 (70-105) mg/dL Calcium 8.4 L 8.3 L (8.6-10.4) mg/dl Adrenal panel 04/13/19 04/14/19 Range/Units 06:30 05:46 Sodium 141 142 (133-145) mmol/L Potassium 3.5 3.3 (3.3-5.1) mmol/L Chloride 107 109 H (96-108) mmol/L Carbon Dioxide 20 L 24 (22-30) mmol/L BUN 9 7 L (8-23) mg/dl Creatinine 0.7 0.7 (0.6-1.1) mg/dl Glucose 60 L 96 (70-105) mg/dL Calcium 8.4 L 8.3 L (8.6-10.4) mg/dl Total Bilirubin 0.4 0.3 (0.0-1.0) mg/dL AST 15 10 (0-37) U/l ALT 10 8 (0-40) U/l Alkaline Phosphatase 70 65 (39-117) U/L Total Protein 5.7 L 5.3 L (5.9-8.4) gm/dL Albumin 2.8 L 2.7 L (3.2-5.2) gm/dL Assessment and Plan (1) Incisional hernia of anterior abdominal wall with obstruction Status: Acute Assessment and plan: Clear liquid diet Discontinue Fisher catheter Discontinue SCDs Bedside commode Current Visit: Yes (2) Dehydration Status: Resolved Current Visit: Yes (3) Benign essential HTN Status: Chronic Current Visit: No (4) Diabetes mellitus with ophthalmic manifestation Status: Chronic Current Visit: No - Time Spent With Patient Total time spent is greater than 50% in coordination of care (as documented) at patient's floor/unit and/or counseling patient:
[2019-04-14] MEDS ORDERED: 0.9 % SODIUM CHLORIDE 1,000 ML IV SCH (14:15)
[2019-04-14] MEDS: MAGNESIUM HYDROXIDE 30 ML ORAL.SUSP PO SCH ×2 (16:08→18:09)
[2019-04-14] MEDS ORDERED: oxyCODONE HCL 5 MG TABLET PO PRN (17:07)
[2019-04-15] MEDS: METOCLOPRAMIDE 10 MG/2 ML VIAL IV SCH ×4 (00:09→18:02)
[2019-04-15 05:56] LABS: Basophils # (Auto) 0 K/mcL (0.0-0.3); Basophils % (Auto) 0.3 % (0.0-2.0); Eosinophils # (Auto) 0.3 K/mcL (0.0-0.7); Eosinophils % (Auto) 3.5 % (0.0-7.0); Granulocytes % (Auto) 66.1 % (38.0-78.0); Hematocrit 31.9 % (36.0-48.0); Hemoglobin 10.5 g/dL (12.0-15.0); Lymphocytes # (Auto) 1.9 K/mcL (1.5-4.8); Lymphocytes % (Auto) 19.4 % (15.5-49.0); Mean Cell Volume 93.3 fL (80.0-100.0); Mean Platelet Volume 6.8 fL (7.4-10.4); Monocytes # (Auto) 1.1 K/mcL (0.1-0.9); Monocytes % (Auto) 10.7 % (1.0-12.0); Platelet Count 331 K/mcL (140-440); RBC 3.42 M/mcL (4.00-5.20); Red Cell Distribution Width 14.2 % (11.5-14.5); WBC 9.8 K/mcL (4.5-11.0)
[2019-04-15] MEDS: INSULIN LISPRO 1 UNIT/0.01 ML UNIT SQ SCH ×4 (07:35→21:18)
--- NOTE | 2019-04-15 09:47 | General Surgery Progress Note ---
Subjective Patient reports: feels better, pain is less, tolerating liquids well, flatus, bowel movement, afebrile Narrative: Note initiated : 04/15/19 at 9:45 am Service Date, if different from initiated Date: [] Patient: Charmaine Servin 64 y/o F admitted on 04/10/19 for abd pain. Chief Complaint: [patient continues to improve. She has been afebrile. Her pain is significantly improved. She is tolerated the full liquid diet without difficulty. White blood count 9.8, hemoglobin 10.5, hematocrit 31.9, potassium 3.3, phosphorus 2.5.] Objective Temp Pulse Resp BP Pulse Ox 99.2 F H 82 20 142/71 95 04/15/19 07:19 04/15/19 04:00 04/15/19 07:19 04/15/19 07:19 04/15/19 07:19 - Additional Data Intake & Output - Last 24 hours: Intake & Output 04/13/19 04/14/19 04/15/19 04/16/19 05:59 05:59 05:59 05:59 Intake Total 3345 3520 2200 Output Total 1915 1510 2155 Balance 1432009 Weight 266 lb 273 lb 3.2 oz 280 lb - General physical appearance well nourished, no distress, obese - Eyes PERRL, normal ocular movement - ENT normal pinna, normal nares, normal mucosa, no hearing loss, no congestion - Neck no masses, no bruits, trachea midline, no lymphadenopathy, no venous distension - Respiratory normal expansion, normal respiratory effort, clear to auscultation - Cardiovascular Cardiovascular exam: Present: normal rate and rhythm, RRR, +S1, +S2. Absent: JVD, tachycardia - Abdomen tender (bowel incisional tenderness but otherwise benign abdomen; large volume serous output through ROBI drains) - Integumentary no rash, no growths, no abnormal pigmentation - Neurologic normal coordination, normal sensation - Musculoskeletal normal gait, normal posture - Psychiatric oriented to time, oriented to person, oriented to place, speech is normal, memory intact - Labs 04/15/19 04:43 04/14/19 05:46 Assessment and Plan (1) Incisional hernia of anterior abdominal wall with obstruction Status: Acute Assessment and plan: GI soft diet Saline lock IV Replace potassium phosphate Current Visit: Yes (2) Dehydration Status: Resolved Current Visit: Yes (3) Benign essential HTN Status: Chronic Current Visit: No (4) Diabetes mellitus with ophthalmic manifestation Status: Chronic Current Visit: No - Time Spent With Patient Total time spent is greater than 50% in coordination of care (as documented) at patient's floor/unit and/or counseling patient:
[2019-04-15] MEDS ORDERED: POTASSIUM PHOSPHATE 40 MEQ in DEXTROSE 5% IN WATER 500 ML IV ONE (09:51)
[2019-04-15] MEDS: CEFEPIME 2 GM VIAL IV SCH ×2 (09:55→21:18)
[2019-04-15] MEDS ORDERED: MAGNESIUM HYDROXIDE 30 ML ORAL.SUSP PO ONE (17:58)
[2019-04-15] MEDS ORDERED: MAGNESIUM HYDROXIDE 30 ML ORAL.SUSP ONE (18:02)
[2019-04-16] MEDS: METOCLOPRAMIDE 10 MG/2 ML VIAL IV SCH ×3 (00:07→12:09)
[2019-04-16 05:40] LABS: Basophils # (Auto) 0 K/mcL (0.0-0.3); Basophils % (Auto) 0.2 % (0.0-2.0); Eosinophils # (Auto) 0.3 K/mcL (0.0-0.7); Eosinophils % (Auto) 3.2 % (0.0-7.0); Granulocytes % (Auto) 67.4 % (38.0-78.0); Hematocrit 30.4 % (36.0-48.0); Hemoglobin 9.9 g/dL (12.0-15.0); Lymphocytes # (Auto) 1.7 K/mcL (1.5-4.8); Lymphocytes % (Auto) 19.2 % (15.5-49.0); Mean Cell Volume 93.3 fL (80.0-100.0); Mean Corpuscular HGB Conc 32.6 g/dL (31.0-36.0); Mean Platelet Volume 6.9 fL (7.4-10.4); Monocytes # (Auto) 0.9 K/mcL (0.1-0.9); Platelet Count 324 K/mcL (140-440); RBC 3.25 M/mcL (4.00-5.20); Red Cell Distribution Width 14.3 % (11.5-14.5)
[2019-04-16] MEDS: CEFEPIME 2 GM VIAL IV SCH (10:54)
[2019-04-16] MEDS: INSULIN LISPRO 1 UNIT/0.01 ML UNIT SQ SCH ×3 (10:54→17:10)
--- NOTE | 2019-04-16 15:22 | Discharge Summary ---
Providers - Providers Patient information: Note initiated : 04/16/19 at 3:18 pm Service Date, if different from initiated Date: [] Patient: Charmaine Servin 64 y/o F admitted on 04/10/19 for abd pain. Chief Complaint: [] Date of admission: 04/10/19 Discharge date: 04/16/19 Attending physician: Gudelia Gould Hospitalization Hospital Course: 64-year-old female admitted on April with recurrent episodes of nausea and vomiting. She has a history of multiple operations in incisional hernias. She had partial obstruction in the past. CT of the abdomen revealed 3 large incisional hernias with incarcerated bowel and omentum. The larger hernia had tightly incarcerated small bowel causing obstruction. Patient was admitted and scheduled for surgery. On 11 April she underwent exploratory laparotomy with adhesion lysis and incisional hernia repair with mesh graft. She had 3 abrasion fascial defects and extensive intra-abdominal adhesions. She tolerated surgery well. She had flatus on the first postoperative day and this progressed over the next day when her nasogastric tube was discontinued. She was started on a clear liquid diet and has tolerated that well. She is now tolerating a soft diet and having regular bowel movements. Her white count is 9 and hemoglobin is 9.9. Hematocrit is 30.4. Patient is stable for discharge. Discharge diagnosis: small bowel obstruction Secondary discharge diagnosis: Incarcerated incisional hernia Diabetes mellitus Hypertension Morbid obesity Reason for admission: recurrent nausea with vomiting and small bowel obstruction Procedures: Exploratory laparotomy with adhesiolysis Incisional hernia repair with mesh graft Pertinent studies/significant findings: CT of abdomen and pelvis with contrast Complications: None Exam Temp Pulse Resp BP Pulse Ox 98.7 F 77 18 119/63 96 04/16/19 12:00 04/16/19 12:00 04/16/19 12:00 04/16/19 12:04/16/19 12:00 - General physical appearance well developed, well nourished, no distress, no pain, obese - Eyes PERRL, normal ocular movement - ENT normal pinna, normal nares, normal mucosa, no hearing loss, no congestion - Head Head exam IM: Present: atraumatic, normocephalic - Neck no masses, no bruits, trachea midline, no lymphadenopathy, no venous distension - Cardiovascular Cardiovascular exam IM: Present: normal rate and rhythm - Respiratory normal expansion, normal respiratory effort, clear to auscultation - Abdomen Abdomen: Present: soft, tender (mild incisional tenderness; good active bowel sounds; ROBI drain with serous fluid), bowel sounds Hernia: Present: none - Genitourinary Present: normal external genitalia - Integumentary Present: no rash, no growths, no abnormal pigmentation - Neurologic Present: normal coordination, normal sensation - Musculoskeletal Present: normal posture, other (gait is altered by deformity of bilateral feet) - Psychiatric Present: oriented to time, oriented to person, oriented to place, speech is normal, memory intact Discharge Plan - Patient/Caregiver Discharge Instructions Activity: increase activity as tolerated Diet: Regular Diet Additional Instructions: EMPTY ROBI DRAIN DAILY NEEDED - Follow up Plan Follow up with: Murali Cloud MD [Primary Care Provider] - Disposition: Home, Self-Care Prognosis: Good Rehab Potential: Good I certify that the patient requires SNF services.: No Overall status at discharge: patient is progressing back to baseline Pending Studies Resuscitation Status Full Code Diet GI Soft/Transitional Start Sun Apr 15 949 Benzocaine (Cetacaine) 2 spray TOPICAL Q2HP PRN PRN Reason: SORE THROAT Last Admin: 04/13/19 12:56 Dose: 2 spray Documented by: [email or web address] Admin: 04/13/19 09:02 Dose: 2 spray Documented by: [email or web address] Admin: 04/12/19 21:52 Dose: 2 spray Documented by: Admin: 04/12/19 18:22 Dose: 2 spray Documented by: [email or web address] Cefepime HCl (Maxipime) 2 gm IV Q12H DENICE; Protocol Last Admin: 04/16/19 10:54 Dose: 2 gm Documented by: [email or web address] Admin: 04/15/19 21:18 Dose: 2 gm Documented by: Admin: 04/15/19 09:55 Dose: 2 gm Documented by: [email or web address] Admin: 04/14/19 20:45 Dose: 2 gm Documented by: Admin: 04/14/19 08:51 Dose: 2 gm Documented by: [email or web address] Admin: 04/13/19 21:07 Dose: 2 gm Documented by: Admin: 04/13/19 09:07 Dose: 2 gm Documented by: [email or web address] Admin: 04/12/19 21:39 Dose: 2 gm Documented by: Admin: 04/12/19 08:34 Dose: 2 gm Documented by: [email or web address] Admin: 04/11/19 16:35 Dose: 2 gm Documented by: [email or web address] Diagnostic Test (Pha) (Accu-Chek) 1 each FS [facility]; Protocol Last Admin: 04/16/19 12:10 Dose: 1 each Documented by: [email or web address] Admin: 04/16/19 07:36 Dose: 1 each Documented by: [email or web address] Admin: 04/15/19 21:18 Dose: 1 each Documented by: Admin: 04/15/19 17:55 Dose: 1 each Documented by: [email or web address] Admin: 04/15/19 11:31 Dose: 1 each Documented by: [email or web address] Admin: 04/15/19 07:34 Dose: 1 each Documented by: [email or web address] Admin: 04/14/19 22:29 Dose: 1 each Documented by: Admin: 04/14/19 17:46 Dose: 1 each Documented by: [email or web address] Admin: 04/14/19 12:09 Dose: 1 each Documented by: [email or web address] Hydromorphone HCl (Dilaudid) 1 mg IV Q2HP PRN PRN Reason: PAIN LEVEL > 6 Last Admin: 04/12/19 18:20 Dose: 1 mg Documented by: [email or web address] Admin: 04/11/19 16:34 Dose: 1 mg Documented by: [email or web address] Insulin Human Lispro (Humalog) 0 unit SQ [facility]; Protocol Last Admin: 04/16/19 12:10 Dose: 2 unit Documented by: [email or web address] Admin: 04/16/19 10:54 Dose: Not Given Documented by: [email or web address] Admin: 04/15/19 21:18 Dose: Not Given Documented by: Admin: 04/15/19 17:55 Dose: 2 unit Documented by: [email or web address] Admin: 04/15/19 12:03 Dose: 2 unit Documented by: [email or web address] Admin: 04/15/19 07:35 Dose: Not Given Documented by: [email or web address] Admin: 04/14/19 20:45 Dose: 2 unit Documented by: Admin: 04/14/19 17:44 Dose: 4 unit Documented by: [email or web address] Admin: 04/14/19 12:09 Dose: Not Given Documented by: [email or web address] Metoclopramide HCl (Reglan) 10 mg IV Q6 DENICE Last Admin: 04/16/19 12:09 Dose: 10 mg Documented by: [email or web address] Admin: 04/16/19 05:57 Dose: 10 mg Documented by: Admin: 04/16/19 00:07 Dose: 10 mg Documented by: Admin: 04/15/19 18:02 Dose: 10 mg Documented by: [email or web address] Admin: 04/15/19 11:54 Dose: 10 mg Documented by: [email or web address] Admin: 04/15/19 06:04 Dose: 10 mg Documented by: Admin: 04/15/19 00:09 Dose: 10 mg Documented by: Admin: 04/14/19 18:04 Dose: 10 mg Documented by: [email or web address] Admin: 04/14/19 12:07 Dose: 10 mg Documented by: [email or web address] Admin: 04/14/19 06:04 Dose: 10 mg Documented by: Admin: 04/13/19 23:43 Dose: 10 mg Documented by: Admin: 04/13/19 18:13 Dose: 10 mg Documented by: [email or web address] Admin: 04/13/19 12:25 Dose: 10 mg Documented by: [email or web address] Admin: 04/13/19 06:24 Dose: 10 mg Documented by: Admin: 04/12/19 23:56 Dose: 10 mg Documented by: Admin: 04/12/19 18:06 Dose: 10 mg Documented by: [email or web address] Admin: 04/12/19 12:10 Dose: 10 mg Documented by: [email or web address] Admin: 04/12/19 05:04 Dose: 10 mg Documented by: Admin: 04/11/19 23:27 Dose: 10 mg Documented by: Admin: 04/11/19 18:14 Dose: 10 mg Documented by: [email or web address] Shift Summary 04/16/19 05:26 Shift Summary by Stefania Melgoza Patient alert and oriented x4. Denies any pain or nausea this shift. Up with SBA, FWW to the bathroom. Uses special inserts for her shoes when out from bed. IV on right hand kept saline locked. Had BM x2 this shift. Midline incision- kendra and tegaderm with shadow drainage. RLQ ROBI emptied 150 mls of serosanguinous output. VSS. Initialized on 04/16/19 05:26 - END OF NOTE
--- NOTE | 2019-04-26 11:24 | Operative Note ---
DATE OF OPERATION: 04/11/2019 PREOPERATIVE DIAGNOSES: Incisional hernia with small bowel obstruction. POSTOPERATIVE DIAGNOSES: Multiple incisional hernias with small bowel obstruction and extensive intraabdominal adhesions. PROCEDURE: Exploratory laparotomy with adhesiolysis and incisional hernia repair with mesh graft. SURGEON: Gudelia Gould MD FINDINGS: 1. Three major fascial defects with incarcerated small bowel in the larger inferior defect with total obstruction. 2. Extensive adhesions with partial small bowel obstruction. DESCRIPTION OF PROCEDURE: Under general anesthesia, the patient's abdomen was prepped and draped in a sterile field. A time-out procedure was carried out as per protocol. The old midline incision was made. Taberg retractor was placed. There were extensive adhesions of the small bowel, colon, and omentum. These were taken down using blunt dissection, electrocautery and Metzenbaum scissors. There were three major hernia fascial defects with the bowel being densely adherent in each of the hernia sacs. Using Metzenbaum scissors, the bowel was dissected from the hernia sac and the intervening intraloop adhesions were until the bowel was totally straightened. The major point of obstruction was in the inferior hernia. The bowel was tightly adherent and constricted but was viable. Next, the bowel and omentum were from the peritoneum laterally on each side in order to have adequate space for the graft to be placed. A 10 x 15 skirted Surgimesh surgery mesh graft was placed. It was felt to be adequate for complete closure. The skirted segments were sutured to the peritoneum and through the muscle using multiple interrupted 0 Prolene. Once this was done, sponge, needle, instrument and blade counts were verified as correct. The suture was tied snugly. Irrigation was carried out with bacitracin solution. The fascia and muscle were closed over the mesh using running locking #1 Prolene. Subcutaneous tissue was irrigated with bacitracin solution, and the subcutaneous fat was closed with running locking 2-0 Monocryl. Skin was closed with kendra. The patient tolerated the procedure well. She was awakened, transferred to a bed and taken to the postanesthetic care unit in stable, satisfactory condition. LCS:bennett Job ID: [id number] Doc ID: [id number] Gudelia Gould M.D.
== END 2019-04-16 18:30 | disposition home or self-care (01) | DRG 336 ==
LOC: ED 19:08 → MEDSUR 22:16
PROVIDERS: ADMIT Family Medicine Adult Medicine; ATTEND Family Medicine Adult Medicine